=== PATIENT | male | born 1960 | race Caucasian/White ===

== ENCOUNTER 2018-12-28 20:16 | Emergency (ER) | payer MEDICAID, SELFPAY ==
[2018-12-28 20:18] VITALS: BP 132/77; PULSE 100; RESP 16; TEMP 36.7; O2SAT 10; BMI 24.5
--- NOTE | 2018-12-28 21:17 | DCINST.ED_ITS ---
ED Disposition - Plan for ED Patient: Instructions: BACK PAIN w/ SCIATICA Prescriptions: Hydrocodone Bitart/Apap 5-325 [[place] 5MG-325MG] 1 tablet PO Q6H PRN PRN 3 Days #6 tablet PRN Reason: Pain Referrals: [facility],Out of [Primary Care Provider] -
--- NOTE | 2018-12-28 21:20 | ED.DCSUM_ITS ---
- ER Visit Summary Date of Service: 12/28/18 Chief Complaint: Back pain, right hip pain History of Present Illness: The patient is a 58 M presenting with back pain, right hip pain. Patient states this has been ongoing for years. He recently saw the [facility] a week ago. He was started on prednisone at that time. He is scheduled to start physical therapy soon. He denies recent injury. He had x-rays at [facility] performed which were negative per patient. He has had no bowel or bladder incontinence. He is able to ambulate with pain. He denies fever, chest pain, shortness of breath. He is on Xarelto. No other complaints. Physical Examination: Vitals are stable. Patient is afebrile. Alert no acute distress. HEENT exam is unremarkable. Neck is supple. Lungs are clear and equal bilaterally. Heart is regular rate and rhythm. Abdomen is soft nontender nondistended. Back: Right paraspinal lumbar muscle tenderness, straight leg raise positive at 30 degrees on the right Extremities are unremarkable. Normal distal pulses. Skin is warm and dry. No focal neurologic deficit. Normal strength and sensation Remainder of exam is unremarkable. Emergency Department Course and Treatment: Patient drove himself to the ED. He is given a prescription for short course of [place]. Advised to follow-up with [facility]. Advised return to ED for worsening complaints. Disposition: Discharge home Impression: Acute on chronic right hip pain, sciatica This note was generated with [employer] dictation software. It may contain incorrect words, spelling, and punctuation that were not noted in review of the chart prior to signing ED Disposition - Plan for ED Patient: Instructions: BACK PAIN w/ SCIATICA Prescriptions: Hydrocodone Bitart/Apap 5-325 [[place] 5MG-325MG] 1 tab PO Q6H PRN PRN 3 Days #6 tab PRN Reason: Pain Prescription Printed Referrals: [facility] Doctor,Out of [Primary Care Provider] -
[2018-12-28 21:32] VITALS: PULSE 89; RESP 18; O2SAT 92
== END 2018-12-28 21:32 | disposition home or self-care (01) ==
PROVIDERS: Emergency Provider Emergency Medicine
DX: M25.551 Pain in right hip (principal); G89.29 Other chronic pain; M54.41 Lumbago with sciatica, right side; I10 Essential (primary) hypertension; Z79.01 Long term (current) use of anticoagulants; Z79.899 Other long term (current) drug therapy; Z72.0 Tobacco use
CPT/HCPCS: 99282